=== PATIENT | male | born 1960 | race Caucasian/White ===

== ENCOUNTER 2022-02-26 21:49 | Emergency (ER) | payer OTHER ==
[2022-02-26 22:08] VITALS: BP 155/88; PULSE 76; TEMP 98.2; BMI 22.3
== END 2022-02-26 22:28 | disposition home or self-care (01) ==
LOC: FER 21:49
DX: S30.1XXA Contusion of abdominal wall, initial encounter (principal); W22.8XXA Striking against or struck by other objects, initial encounter
CPT/HCPCS: 99281-25

== ENCOUNTER 2022-10-13 16:20 | Emergency (ER) | payer OTHER ==
[2022-10-13] MEDS ORDERED: ACETAMINOPHEN 325 MG TABLET (FP) PO ONE (16:25)
[2022-10-13 16:37] VITALS: BP 143/83; PULSE 87; RESP 18; TEMP 97.8; BMI 22.4
[2022-10-13] MEDS ORDERED: ACETAMINOPHEN 325 MG TABLET (FP) ONE (17:12)
== END 2022-10-13 18:38 | disposition home or self-care (01) ==
LOC: FER 16:20
DX: M54.2 Cervicalgia (principal)
CPT/HCPCS: 99283-25